=== PATIENT | female | born 1975 | race Two or more races ===

== ENCOUNTER 2017-07-10 15:47 | Inpatient (IN) | payer MEDICAID, SELFPAY ==
--- NOTE | 2017-07-10 16:29 | ED PDOC ---
HPI: Psych/Substance Abuse Time Seen by Provider: 07/10/17 15:55 Chief Complaint (Nursing): Psychiatric Evaluation Chief Complaint (Provider): Psychiatric evaluation History Per: Patient History/Exam Limitations: no limitations Onset/Duration Of Symptoms: Days (Prior to arrival) Suicide/Self Injury Attempted (Context): None Associated Symptoms: Anxiety Additional History Per: Family (uncle), Boyfriend Additional Complaint(s): Vidhi Fisher is a 42 year old female, with no past medical history, who was brought to the emergency room via EMS for evaluation of "acute psychotic break" prior to arrival. Uncle and boyfriend are at bedside and report she has not slept in 3 days. They state patient appeared very anxious, she was brought to [facility] this morning, was given "sleeping pill" and sent home with referral for outpatient therapy. They went to psychiatric office from there and she started screaming not making any sense and having a panic attack, 911 was called from office and brought here. Patient is calm and cooperative, will not let go of boyfriend's hand and denies any physical complaints, suicidal or homicidal thoughts. PMD: None provided. Past Medical History Reviewed: Historical Data, Nursing Documentation, Vital Signs Vital Signs: Last Vital Signs Temp 98.0 F 07/10/17 15:54 Pulse 88 07/10/17 15:54 Resp 20 07/10/17 15:54 BP 129/83 07/10/17 15:54 Pulse Ox 99 07/10/17 15:54 - Medical History PMH: Denies: Chronic Kidney Disease - Family History Family History: States: Unknown Family Hx - Social History Current smoker - smoking cessation education provided: No Alcohol: None Drugs: Denies - Immunization History Hx Tetanus Toxoid Vaccination: No Hx Influenza Vaccination: No Hx Pneumococcal Vaccination: No - Home Medications Home Medications: Ambulatory Orders Medication Instructions Recorded Divalproex [Depakote DR(*BID*)] 250 mg PO BID #60 tcp 04/10/16 LORazepam [Ativan] 0.5 mg PO BID #60 tab 04/10/16 Risperidone [Risperdal M-TAB] 0.5 mg PO AMHS #60 odt 04/10/16 - Allergies Allergies/Adverse Reactions: Allergies Allergy/AdvReac Type Severity Reaction Status Date / Time No Known Allergies Allergy Verified 04/03/16 09:11 Review of Systems ROS Statement: Except As Marked, All Systems Reviewed And Found Negative Psych: Positive for: Anxiety, Other (screaming not making sense, and panic attack). Negative for: Suicidal ideation (& homicidal ideation) Physical Exam - Reviewed Nursing Documentation Reviewed: Yes Vital Signs Reviewed: Yes - Physical Exam Appears: Positive for: Well, Non-toxic, No Acute Distress Head Exam: Positive for: ATRAUMATIC, NORMAL INSPECTION, NORMOCEPHALIC Skin: Positive for: Normal Color, Warm, Dry Eye Exam: Positive for: Normal appearance Respiratory: Positive for: Normal Breath Sounds. Negative for: Respiratory Distress Neurologic/Psych: Positive for: Alert, Oriented - Laboratory Results Result Diagrams: 07/10/17 16:35 07/10/17 16:35 - ECG O2 Sat by Pulse Oximetry: 99 (RA) Pulse Ox Interpretation: Normal Medical Decision Making Medical Decision Making: Initial Impression: Psychiatric evaluation Initial Plan: --EKG --Acetaminophen --Alcohol Serum --Comp Metabolic Panel --Drug screen urine --Salicylate --Crisis Evaluation --Urine --CBC w/ differential --Chest one view [RAD] --Urinalysis --reevaluation Labs resulted and reviewed, Pt medically stable to undergo crisis eval. on re-eval however, crisis presented at bedside to speak to Pt andwhen boyfriend was asked to leave room, Pt became aggressive, irate and tried to elop from eD. Pt medicated to relieve her or her agitation and Pt placed in 4 point restraints. After Pt asleep, restraints removed. 2200- Pt asleep, restraints removed. Case discussed with crisis team who report they would like to re-evaluate Pt after waking up and see if she is willing to sign herself in. Crisis team notes that sleep deprivation might be the cause of all her symptoms. Case endorsed to YEMI Clemente pending Crisis eval Scribe Attestation: Documented by Deep Chan, acting as a scribe for Marylou GERMAN Provider Scribe Attestation: All medical record entries made by the Scribe were at my direction and personally dictated by me. I have reviewed the chart and agree that the record accurately reflects my personal performance of the history, physical exam, medical decision making, and the department course for this patient. I have also personally directed, reviewed, and agree with the discharge instructions and disposition. Disposition - Clinical Impression Clinical Impression: Bipolar 1 disorder - Patient ED Disposition Is Patient to be Admitted: Transfer of Care (oumou) - Disposition Disposition: Transfer of Care (oumou) Disposition Time: 00:00 Condition: STABLE Forms: [employer] ([place])
[2017-07-10 16:47] LABS: BASO % 0.5 % (0.0-2.0); EOS % 0.4 % (0.0-4.0); HEMATOCRIT 39.9 % (34.0-47.0); LYMPH % 21.4 % (20.0-40.0); MEAN CORPUSCULAR HEMOGLOBIN 31.4 pg (27.0-31.0); MEAN CORPUSCULAR HGB CONC 33.8 g/dL (33.0-37.0); MEAN PLATELET VOLUME 7.2 fl (7.2-11.7); MONO # 0.6 K/uL (0.0-0.8); MONO % 6.5 % (0.0-10.0); NEUT # 6.7 K/uL (1.8-7.0); NEUT % 71.2 % (50.0-75.0); NRBC % 0.1 % (0.0-0.0); RED CELL DISTRIBUTION WIDTH 13.2 % (11.5-14.5); WHITE BLOOD COUNT 9.4 K/uL (4.8-10.8)
[2017-07-10 16:56] LABS: ALB/GLOB RATIO 1.2 (1.0-2.1); ALCOHOL SERUM < 10 mg/dl (0-10); ALKALINE PHOSPHATASE 64 U/L (38-126); ALT/SGPT 27 U/L (9-52); AST/SGOT 22 U/L (14-36); BILIRUBIN,TOTAL 0.7 mg/dl (0.2-1.3); BLOOD UREA NITROGEN 7 mg/dl (7-17); CALCIUM 9.6 mg/dL (8.4-10.2); CARBON DIOXIDE 23 mmol/L (22-30); CHLORIDE 105 mmol/L (98-107); GFR AFRICAN-AMERICAN > 60; GLUCOSE,RANDOM 94 mg/dL (65-105); POTASSIUM 3.4 MMOL/L (3.6-5.0); SODIUM 142 mmol/l (132-148); TOTAL PROTEIN 8.4 G/DL (6.3-8.2)
[2017-07-10 17:14] LABS: RBC URINE 2 /hpf (0-3); URINE BACTERIA RARE (<OCC); URINE BILIRUBIN NEGATIVE (NEGATIVE); URINE BLOOD SMALL (NEGATIVE); URINE COLOR YELLOW (YELLOW); URINE GLUCOSE (UA) NEG (Normal); URINE KETONE TRACE mg/dL (NEGATIVE); URINE LEUKOCYTE ESTERASE NEG Leu/uL (Negative); URINE PROTEIN NEGATIVE (NEGATIVE); URINE UROBILINOGEN 0.2-1.0 mg/dL (0.2-1.0); WBC URINE 1 /hpf (0-5)
[2017-07-10 17:40] LABS: THYROID STIMULATING HORMONE 2.91 mIU/ML (0.46-4.68)
--- NOTE | 2017-07-10 17:45 | RAD ---
PROCEDURE: CHEST RADIOGRAPH, 1 VIEW HISTORY: med screening COMPARISON: Chest radiographs 04/03/2016. FINDINGS: LUNGS: No acute infiltrate identified. PLEURA: No pneumothorax or pleural fluid seen. CARDIOVASCULAR: Normal. OSSEOUS STRUCTURES: No significant abnormalities. VISUALIZED UPPER ABDOMEN: Normal. OTHER FINDINGS: None. IMPRESSION: No acute cardiopulmonary disease or significant change identified compared to 04/03/2016.
[2017-07-10 22:20] VITALS: O2SAT 99
--- NOTE | 2017-07-11 00:49 | ED PDOC ---
- Laboratory Results Result Diagrams: 07/10/17 16:35 07/10/17 16:35 - ECG O2 Sat by Pulse Oximetry: 99 (RA) - Progress ED Course And Treament: Case endorsed to sports writer from [facility] pending crisis eval 00:45 Patient re-evaluated by grey roll worker; to be admitted as per Dr. Moreno. Medical Decision Making Medical Decision Making: Patient medically stable for psych admission Disposition - Clinical Impression Clinical Impression: Bipolar 1 disorder - POA Present On Arrival: None - Disposition Disposition: Admitted as In-Patient Disposition Time: 00:50 Condition: STABLE Forms: [employer] ([place])
[2017-07-11] MEDS ORDERED: Alum-Mag Hydrox-Simethicone Susp (30 mL) PO PRN (02:35)
[2017-07-11] MEDS ORDERED: Magnesium Hydroxide Susp 30 ml UD PO PRN (02:35)
[2017-07-11] MEDS ORDERED: DiphenhydrAMINE 50 mg/ml Inj IM PRN (02:35)
--- NOTE | 2017-07-11 03:31 | PCM.BM ---
Treatment Plan Problems - Problems identified on initial assessmt Delusions Date Initiated: 07/11/17 Time Initiated: Assessment reference: NA Status: Active Medication nonadherence Date Initiated: 07/11/17 Time Initiated: Assessment reference: NA Status: Active Altered Sleep Patterns Date Initiated: 07/11/17 Time Initiated: Status: Active Treatment assets and liabiliti Patient Assests: ADL independent, good support system Patient Liabilities: language/speech - Milieu Protocol Maintain good personal hygiene: daily Encourage regular showers, daily Assist patient to perform ADL's, every shift Remind patient to perform daily oral care Conduct patient checks and document Observation sheet: Q15 minutes Maintain personal safety: every shift Educate patient to report safety concerns to staff, every shift Monitor environment for contraband/sharps Medication safety: Monitor for expected outcome, potential side effects: every shift, Assess barriers to learning: every shift, Assess readiness for medication education: daily
[2017-07-11 08:39] LABS: CHOLESTEROL 180 mg/dL (0-199)
--- NOTE | 2017-07-11 13:04 | CP.PCM.CON ---
History of Present Illness - History of Present Illness History of Present Illness: Reason for Consult: per hospital protocol CC:insomnia HPI 42 F no past medical history admitted to psych for "psychotic break." She states she had insomnia, at time of exam patient very somnolent and resting. No other complaints at this time. ROS: per HPI, 12 systems reviewed and negative PMH: denies PSH: denies FH: denies SH: denies tobacco, ETOH, IVDU Meds: as below Allergies: NKDA Vitals: reviewed and currently stable Exam: GEN: WDWN, alert, cooperative HEENT: NCAT, PERRL, EOMI NECK: supple, no JVD, no lymphadenopathy CARDIAC: +S1S2 RRR LUNG: CTAB No WRR ABD: SOFT NT ND BSX4 NO MASSES NO HSM EXT: +pedal pulses, equal strength NEURO: AAOx3 SKIN warm, dry PSYCH normal mood, normal affect Labs: 07/10/17 16:35 07/10/17 16:35 Assessment and Plan: 42 F no past medical history admitted to psych for "psychotic break." She states she had insomnia, at time of exam patient very somnolent and resting. No other complaints at this time. Psychiatric Issue Management per psych Past Patient History - Past Social History Alcohol: None Drugs: Denies - CARDIAC Hx Cardiac Disorders: No - PULMONARY Hx Respiratory Disorders: No - NEUROLOGICAL Hx Neurological Disorder: No - HEENT Hx HEENT Problems: No - RENAL Hx Chronic Kidney Disease: No - ENDOCRINE/METABOLIC Hx Endocrine Disorders: No - HEMATOLOGICAL/ONCOLOGICAL Hx Blood Disorders: No - INTEGUMENTARY Hx Dermatological Problems: No - MUSCULOSKELETAL/RHEUMATOLOGICAL Hx Musculoskeletal Disorders: No - GASTROINTESTINAL Hx Gastrointestinal Disorders: No - GENITOURINARY/GYNECOLOGICAL Hx Genitourinary Disorders: No - PSYCHIATRIC Hx Psychophysiologic Disorder: Yes - SURGICAL HISTORY Hx Surgeries: No - ANESTHESIA Hx Anesthesia: No Meds Allergies/Adverse Reactions: Allergies Allergy/AdvReac Type Severity Reaction Status Date / Time No Known Allergies Allergy Verified 04/03/16 09:11 - Medications Medications: Current Medications Acetaminophen (Tylenol 325mg Tab) 650 mg PO Q4 PRN PRN Reason: Pain, moderate (4-7) Al Hydrox/Mg Hydrox/Simethicone (Maalox Plus 30 Ml) 30 ml PO Q4 PRN PRN Reason: Dyspepsia Diphenhydramine HCl (Benadryl) 50 mg IM Q6 PRN PRN Reason: Extrapyramidal S/S Unable PO Diphenhydramine HCl (Benadryl) 50 mg PO Q6 PRN PRN Reason: Extrapyramidal Symptoms Diphenhydramine HCl (Benadryl) 50 mg PO HS PRN PRN Reason: Sleep Haloperidol (Haldol) 5 mg PO Q4 PRN PRN Reason: Agitation Haloperidol Lactate (Haldol) 5 mg IM Q4 PRN PRN Reason: Agitation, Unable to Take PO Lorazepam (Ativan) 2 mg IM Q4 PRN PRN Reason: Anxiety/Agitation,Unable PO Lorazepam (Ativan) 2 mg PO Q4 PRN PRN Reason: Anxiety/Agitation Magnesium Hydroxide (Milk Of Magnesia) 30 ml PO HS PRN PRN Reason: Constipation Results - Vital Signs Recent Vital Signs: Last Vital Signs Temp 97.8 F 07/11/17 03:10 Pulse 84 07/11/17 03:10 Resp 18 07/11/17 03:39 BP 120/70 07/11/17 03:10 Pulse Ox 99 07/11/17 03:10 - Labs Result Diagrams: 07/10/17 16:35 07/10/17 16:35 Labs: Laboratory Results - last 24 hr 07/11/17 08:24 Triglycerides 86 Cholesterol 180 LDL Cholesterol Direct 114 HDL Cholesterol 37
--- NOTE | 2017-07-11 19:12 | PCM.PYCHPN ---
Psychiatric Progress Note - Psychiatric Progress Note Patient seen today, length of contact: chart reviewed case discussed with team Patient Chief Complaint: i was at home my was out with his friends and I heard some thing scratching at the window Problems Identified/Issues Discussed: alteration in thought process alteration in mood alteration in sleep Medical Problems: per chart Diagnostic Results: per psychiatry per medicine per nursing per social work DSM 5 Symptoms Update: lability in mood alteration in thought process paranoia alteration in sleep Medication Change: Yes (start seroquel 25mg po hs, depakote ec 1000mg po hs) Medical Record Reviewed: Yes Consults ordered or reviewed: pt to be seen by hospitalist Mental Status Examination - Cognitive Function Orientation: Person, Place, Time Memory: Intact Attention: WNL Concentration: WNL Association: WNL Fund of Knowledge: [facility] Decription of patient's judgement and insights: impaired - Mood Additional comments: vacillation in mood - Affect Affect: Broad - Speech Speech: Soft Additional comments: somewhat circumstantial - Formal Thought Process Formal Thought Process: Paranoia, Circumstantial - Homicidal Ideation Homicidal Ideation: No Goal/Treatment Plan - Goal/Treatment Plan Progress Toward Problem(s) and Goals/Treatment Plan: inpt admission per attending vital signs and clinical observation per protocol and per status prns per unit based protocol start pt on seroquel 25mg po hs valproic acid ec 1000mg po hs valproic acid level in three days (to be decided and or adjusted by team and per clinical status) hospitalist consult discharge planning in progress Estimated Date of D/C: 07/18/17 - Smoking Cessation Smoking Cessation Initiated: No Reason for not providing: pt deferred need
[2017-07-11] MEDS: Divalproex 500 mg ER (ONCE DAILY formulation) PO SCH (21:14)
--- NOTE | 2017-07-11 23:43 | CARD ---
APPROVED REPORT EKG Measurement Heart [id number] <Conclusion> Normal sinus rhythm Normal ECG
[2017-07-12 09:10] VITALS: RESP 18
[2017-07-12 09:14] LABS: CHOLESTEROL 189 mg/dL (0-199)
--- NOTE | 2017-07-12 13:39 | PCM.PYCHPN ---
Psychiatric Progress Note - Psychiatric Progress Note Patient seen today, length of contact: discussed with team Patient Chief Complaint: i want to go home soon Problems Identified/Issues Discussed: pt with pressured speech. she does report improved sleep. she does report medications are helpful. she denies side effects. she is attending groups. Medication Change: No ( ) Medical Record Reviewed: Yes Mental Status Examination - Cognitive Function Orientation: Person, Place, Time Memory: Intact Attention: WNL Concentration: WNL Association: WNL Fund of Knowledge: WNL Decription of patient's judgement and insights: fair - Affect Affect: Broad - Speech Speech: Pressured - Formal Thought Process Formal Thought Process: Loosening of associations - Suicidal Ideation Suicidal Ideation: No Plan: denies si - Homicidal Ideation Homicidal Ideation: No Goal/Treatment Plan - Goal/Treatment Plan Need for Continued Stay: Remain at risks for inpatient hospitalization, Severe functional impairment Progress Toward Problem(s) and Goals/Treatment Plan: bipolar disorder, manic continue with depakote and seroquel check level tomorrow as pt is pushing for discharge and may not be in hospital monday when level is due arrange aftercare encourage participation in groups Estimated Date of D/C: 07/18/17
[2017-07-12] MEDS: Divalproex 500 mg ER (ONCE DAILY formulation) PO SCH (21:32)
[2017-07-13 09:21] VITALS: BP 122/78; PULSE 87; TEMP 97.5
--- NOTE | 2017-07-13 11:29 | PCM.PYCHDC ---
Mental Status Examination - Mental Status Examination Orientation: Person, Place, Situation, Time Memory: Intact Mood: Neutral Affect: Broad Speech: Appropriate Attention: WNL Concentration: WNL Association: WNL Fund of Knowledge: WNL Formal Thought Process: No Impairment Description of patient's judgement and insight: fair Psychotic Thoughts and Behaviors: denies a/v hallucinations Suicidal Ideation: No Current Homicidal Ideation?: No Plan: denies any suicidal or homicidal thoughts Discharge Summary - Discharge Note Reason for Hospitalization: [facility] Psychiatric History (includes Medical, Family, Personal Hx): history of bipolar disorder Laboratory Data: Abnormal Lab Results 07/12/17 07/13/17 08:20 06:30 Hemoglobin A1c 5.1 Valproic Acid 68.5 Consultations:: List each consultation separately and include: 1. Reason for request. 2. Findings. 3. Follow-up Consultations: seen by hospitalist Summary of Hospital Course include:: 1. Description of specific treatment plan utilized for patients during their course of treatmen. 2. Summarize the time- course for resolution of acute symptoms and/or regressed behaviors. 3. Describe issues identified and worked on during hospitalization. 4. Describe medication utilized. 5. Describe medical problems identified and treated. 6. Reassessment of suicide risk Summary of Hospital Course: pt was admitted to [facility] and oriented to the unit. she was started on depakote and seroquel by covering provider. she tolerated the medications and her mood improved. she was attending groups on the unit. she was goal directed and future oriented. she was denying any suicidal or homicidal thoughts. pt was agreeable to follow up with outpatient treatment. - Final Diagnosis (DSM 5) Condition upon Discharge: STABLE DSM 5: bipolar disorder Disposition: HOME/ ROUTINE Follow-up Treatment Plan: take medications as prescribed to not use alcohol, tobacco or other illicit substances call 911 if any suicidal or homicidal thoughts follow up with aftercare appointments as directed Prescriptions/Medication Reconciliation: Divalproex [Depakote ER(ONCE DAILY)] 1,000 mg PO HS #60 ter QUEtiapine [Seroquel] 25 mg PO HS #30 tab - Smoking Cessation Smoking Cessation Medication prescribed: No - Antipsychotic Medications Pt discharged on 2 or more routine antipsychotic medications: No
== END 2017-07-13 14:15 | disposition home or self-care (01) | DRG 885 ==
LOC: H.ER 15:47 → H.ERHOLD 07-11 00:48 → H.PSYCH 07-11 02:46
PROVIDERS: ADMIT Psychiatry & Neurology Psychiatry; ATTEND Psychiatry & Neurology Psychiatry
PROC: GZHZZZZ Group Psychotherapy (ICD-10-PCS; principal; 2017-07-11)
DX: F31.9 Bipolar disorder, unspecified (principal); Z78.1 Physical restraint status; G47.00 Insomnia, unspecified; R45.1 Restlessness and agitation